=== PATIENT | female | born 1970 | race Caucasian/White ===

== ENCOUNTER 2017-02-12 16:20 | Emergency (ER) | payer MEDICAID, OTHER ==
[~2017-02-12] VITALS: Ht 167.6 cm; Wt 65.0 kg
[~2017-02-12 16:20] MED LIST: CEPH500C3 PO; SULF-154 PO; Z.0.NO CURRENT MEDS
[2017-02-12 16:23] VITALS: BP 186/90; PULSE 107; RESP 20; TEMP 98.8; O2SAT 96
--- NOTE | 2017-02-12 16:28 | PD ---
Physical Exam Date Seen by Provider: February 12, 2017 Time Seen by Provider: 16:25 Narrative 46 year old female presents to the emergency department for [id number] of back pain. She stated it started with lower back pain and radiated up. She states it started on Friday after she twisted her back. She went to [facility] on Friday and had a CT of her abdomen done. She was diagnosed with a muscle strain. Vital signs reviewed. Patient awaiting bed placement. Data Data Last Documented VS Vital Signs Date Time Temp Pulse Resp B/P Pulse Ox O2 Delivery O2 Flow Rate FiO2 02/12/17 16:23 98.8 107 20 186/90 96 MDM Supervised Visit with CHANCE: Terri Reyes February 12, 2017 16:28
[2017-02-12] MEDS ORDERED: KETOROLAC TROMETHAMINE 30 MG/ML (IVP) VIAL IV PUSH ONE (16:45)
[2017-02-12] MEDS ORDERED: MORPHINE SULFATE 4 MG/ML INJ IV ONE (16:45)
[2017-02-12] MEDS ORDERED: ONDANSETRON HCL 4 MG/2 ML VIAL IVP ONE (16:45)
--- NOTE | 2017-02-12 16:49 | PD ---
HPI Chief Complaint: Flank/Kidney Pain Time Seen by Provider: 16:35 Travel History International Travel<30 days: No Contact w/Intl Traveler<30days: No Traveled to known affect area: No History of Present Illness HPI 46-year-old female presents for evaluation of back pain. Reports that 5 days ago she was opening her fridge door when the door became unhinged and she ended up twisting her back in an effort to hold up the door. She developed some lower back pain then. Since then the pain has gradually worsened, now radiates into the left flank region of the back. The pain is an aching/spasm pain which is constant and worse with movement. She was seen at [facility] 2 days ago. She reports that she had a urinalysis which revealed some hematuria. They performed a CT of the abdomen and pelvis which revealed no evidence of stone or other abnormality. She was diagnosed with a thoracic strain and recommended [id number] ibuprofen use. She was encouraged to follow-up with primary care physician possibly for CT imaging with IV contrast. She made an appointment with a primary care physician next Friday but she comes here today with persistent pain and requesting pain control. She denies any new injury. She denies any dysuria, fevers or chills, abdominal pain, chest pain, shortness of breath, nausea or vomiting. She has no other complaints. PFSH Past Medical History Cancer: Yes (MELANOMA BACK) Diabetes: No Diminished Hearing: No Glaucoma: No Hepatitis: No Hiatal Hernia: No Hypertension: No Integumentary: Yes (MELANOMA REMOVED) Thyroid Disease: No : 3 Para: 3 Past Surgical History Abdominal Surgery: No Cardiac Surgery: No Ear Surgery: No Endocrine Surgery: No Eye Surgery: No Genitourinary Surgery: No Gynecologic Surgery: No Oral Surgery: No Pacemaker: No Thoracic Surgery: No Social History Alcohol Use: Yes (OCC) Tobacco Use: Yes (/2 PPD) Substance Use: No Allergies-Medications (Allergen,Severity, Reaction): Coded Allergies: No Known Allergies (Verified , 02/12/17) Reported Meds & Prescriptions Reported Meds & Active Scripts Active Lidoderm Patch 12 HR (Lidocaine) 5% Patch 1 Patch TOPICAL DAILY PRN Remove patch after 12 hours Baclofen 10 Mg Tab 10 Mg PO Q8HR PRN [address] (Diclofenac Sodium) 75 Mg Tabdr 75 Mg PO BID 10 Days Review of Systems Except as stated in HPI: all other systems reviewed are Neg Physical Exam Narrative GENERAL: Well-developed well-nourished female in no acute distress SKIN: Warm and dry. HEAD: Atraumatic. Normocephalic. EYES: Pupils equal and round. No scleral icterus. No injection or drainage. ENT: No nasal bleeding or discharge. Mucous membranes pink and moist. NECK: Trachea midline. No JVD. CARDIOVASCULAR: Regular rate and rhythm. No murmur appreciated. RESPIRATORY: No accessory muscle use. Clear to auscultation. Breath sounds equal bilaterally. GASTROINTESTINAL: Abdomen soft, non-tender, nondistended. Hepatic and splenic margins not palpable. MUSCULOSKELETAL: No obvious deformities. Tender to palpation left CVA region. No tenderness to palpation along the thoracic or lumbar midline. NEUROLOGICAL: Awake and alert. No obvious cranial nerve deficits. Motor grossly within normal limits. Normal speech. PSYCHIATRIC: Appropriate mood and affect; insight and judgment normal. Data Data Last Documented VS Vital Signs Date Time Temp Pulse Resp B/P Pulse Ox O2 Delivery O2 Flow Rate FiO2 02/12/17 18:22 70 20 124/75 97 Room Air 02/12/17 16:23 98.8 Orders Complete Blood Count With Diff (02/12/17 16:43) Basic Metabolic Panel (Bmp) (02/12/17 16:43) Urinalysis - C+S If Indicated (02/12/17 16:43) Ed Urine Pregnancytest Poc (02/12/17 16:43) Iv Access Insert/Monitor (02/12/17 16:43) Morphine Inj (Morphine Inj) (02/12/17 16:45) Ondansetron Inj (Zofran Inj) (02/12/17 16:45) Ketorolac Inj (Toradol Inj) (02/12/17 16:45) Sodium Chlor 0.9% 1000 Ml Inj (Ns 1000 M (02/12/17 17:25) Act Partial Throm Time (Ptt) (02/12/17 17:26) Prothrombin Time / Inr (Pt) (02/12/17 17:26) Labs Laboratory Tests Test 02/12/17 02/12/17 17:18 18:20 White Blood Count 7.9 TH/MM3 Red Blood Count 5.26 MIL/MM3 Hemoglobin 15.5 GM/DL Hematocrit 45.1 % Mean Corpuscular Volume 85.8 FL Mean Corpuscular Hemoglobin 29.4 PG Mean Corpuscular Hemoglobin 34.3 % Concent Red Cell Distribution Width 14.6 % Platelet Count 222 TH/MM3 Mean Platelet Volume 8.6 FL Neutrophils (%) (Auto) 74.1 % Lymphocytes (%) (Auto) 17.4 % Monocytes (%) (Auto) 7.3 % Eosinophils (%) (Auto) 0.7 % Basophils (%) (Auto) 0.5 % Neutrophils # (Auto) 5.9 TH/MM3 Lymphocytes # (Auto) 1.4 TH/MM3 Monocytes # (Auto) 0.6 TH/MM3 Eosinophils # (Auto) 0.1 TH/MM3 Basophils # (Auto) 0.0 TH/MM3 CBC Comment DIFF FINAL Differential Comment Prothrombin Time 10.2 SEC Prothromb Time International 0.9 RATIO Ratio Activated Partial 26.9 SEC Thromboplast Time Sodium Level 140 MEQ/L Potassium Level 4.0 MEQ/L Chloride Level 103 MEQ/L Carbon Dioxide Level 28.8 MEQ/L Anion Gap 8 MEQ/L Blood Urea Nitrogen 17 MG/DL Creatinine 0.76 MG/DL Estimat Glomerular Filtration 81 ML/MIN Rate Random Glucose 92 MG/DL Calcium Level 10.1 MG/DL Urine Color YELLOW Urine Turbidity HAZY Urine pH 6.0 Urine Specific [place] 1.018 Urine Protein NEG mg/dL Urine Glucose (UA) NEG mg/dL Urine Ketones NEG mg/dL Urine Occult Blood SMALL Urine Nitrite NEG Urine Bilirubin NEG Urine Urobilinogen LESS THAN 2.0 MG/DL Urine Leukocyte Esterase SMALL Urine RBC 8 /hpf Urine WBC 4 /hpf Urine Squamous Epithelial 3 /hpf Cells Urine Bacteria FEW /hpf Urine Hyaline Casts 1 /lpf Urine Mucus FEW /lpf Microscopic Urinalysis Comment CULT NOT INDICATED MDM Medical Decision Making Medical Screen Exam Complete: Yes Emergency Medical Condition: Yes Medical Record Reviewed: Yes Differential Diagnosis Thoracic strain, spasm, renal stone, hydronephrosis, pyelonephritis, shingles Narrative Course 46-year-old female who reports that she twisted her back 5 days ago when the refrigerator door became unhinged. She has had persistent left flank region pain since then which is worse with movement. Seen at an outside emergency room 2 days ago, diagnosed with a thoracic strain after CT of the abdomen and pelvis, persistent pain today which prompted evaluation. Her history is certainly suggestive of a muscle strain. We will attempt to get records she was concerned about the treatment that she received at the outside hospital. We will review the CT of the abdomen and pelvis records. The patient will be provided pain medicine. We will check her kidney function and repeat urinalysis because she does report hematuria at the outside emergency room. After my examination the patient mentioned to the nurse that she had bright red rectal bleeding during bowel movements about 2-3 times one month ago. None since then. No rectal pain or abdominal pain. Rectal examination was performed in the presence of a female nurse revealing brown stool, Hemoccult negative. Hemoglobin 15. Received the fax from [facility]. CT of the abdomen and pelvis was read as "normal CT abdomen and pelvis" by radiologist Dr. Maloney , urinalysis on February 10 revealed trace blood and trace proteins. The patient's lab work today is unremarkable. Her examination and history are consistent with a thoracic strain. Recommended outpatient follow-up. She will be discharged with nonnarcotic pain medication. HemaPrompt Point of Care Internal Pos. & Neg. Controls: Passed Fecal Specimen Occult Blood: Negative Diagnosis Primary Impression: Strain of thoracic region Qualified Code: S29.019A - Strain of thoracic region, initial encounter Additional Impression: Hematuria Additional Instructions: Medication as needed. Do not drive or drink alcohol when taking baclofen. Follow up close with primary care physician. Return for any emergent medical conditions. Med/Other Pt SpecificInfo: Prescription(s) given Scripts Lidocaine Patch 12 HR (Lidoderm Patch 12 HR)5% Patch1 Patch TOPICAL DAILY PRN ( PAIN) #1 BOX Ref 1 Remove patch after 12 hours Prov:Pili Anand MD 02/12/17 Baclofen 10 Mg Tab10 Mg PO Q8HR PRN (MUSCLE SPASM) 10 Days Ref 0 Prov:Pili Anand MD 02/12/[address] 75 Mg Tabdr75 Mg PO BID 10 Days Ref 0 Prov:Pili Anand MD 02/12/17 Disposition: 01 DISCHARGE HOME Condition: Stable Sunny Silva February 12, 2017 16:49
[2017-02-12] MEDS ORDERED: SODIUM CHLOR 0.9% 1000 ML INJ 1,000 ML IV SCH (17:25)
[2017-02-12 17:38] VITALS: BP 187/80; PULSE 76; RESP 24; O2SAT 96
[2017-02-12 17:47] LABS: AUTOMATED NEUTROPHIL # 5.9 TH/MM3 (1.8-7.7); BASOPHIL % 0.5 % (0.0-2.0); EOSINOPHIL # 0.1 TH/MM3 (0-0.4); EOSINOPHIL % 0.7 % (0.0-4.0); HEMATOCRIT 45.1 % (35.0-46.0); HEMO FLAGS DIFF FINAL; LYMPH % 17.4 % (9.0-44.0); LYMPHOCYTE # 1.4 TH/MM3 (1.0-4.8); MEAN CELL VOLUME 85.8 FL (80.0-100.0); MEAN CORPUSCULAR HEMOGLOBIN 29.4 PG (27.0-34.0); MEAN CORPUSCULAR HGB CONC 34.3 % (32.0-36.0); MONO % 7.3 % (0.0-8.0); NEUT % 74.1 % (16.0-70.0); PLATELET COUNT 222 TH/MM3 (150-450); RED BLOOD COUNT 5.26 MIL/MM3 (4.00-5.30); RED CELL DISTRIBUTION WIDTH 14.6 % (11.6-17.2); WHITE BLOOD COUNT 7.9 TH/MM3 (4.0-11.0)
[2017-02-12 18:06] LABS: APTT (PATIENT) 26.9 SEC (24.3-30.1); INTERNATIONAL NORMALIZED RATIO 0.9 RATIO; PROTHROMBIN TIME - PATIENT 10.2 SEC (9.8-11.6)
[2017-02-12 18:08] LABS: BICARBONATE 28.8 MEQ/L (21.0-32.0)
[2017-02-12 18:22] VITALS: BP 124/75; PULSE 70; RESP 20; O2SAT 97
[2017-02-12] MEDS ORDERED: DICL75TA PO (18:56)
[2017-02-12] MEDS ORDERED: BACL10TA PO (18:56)
[2017-02-12] MEDS ORDERED: LIDO5DIS35 TOPICAL (18:56)
[2017-02-12 19:11] LABS: BACTERIA, URINE FEW /hpf; BLOOD, URINE SMALL (NEG); COMMENT (UR) CULT NOT INDICATED; CULTURE IF INDICATED CULT NOT INDICATED; GLUCOSE,URINE NEG (NEG); HYALINE CAST, URINE 1 /lpf (RARE); KETONE, URINE NEG (NEG); MUCUS URINE FEW /lpf (OCC); NITRITE,URINE NEG (NEG); SQUAMOUS EPITHELIAL CELL URINE 3 /hpf (0-5); URINE COLOR YELLOW (YELLW/STRAW)
== END 2017-02-12 19:30 | disposition home or self-care (01) ==
LOC: NEPD 16:20
DX: S29.012A Strain of muscle and tendon of back wall of thorax, initial encounter (principal); R31.9 Hematuria, unspecified; X50.0XXA Overexertion from strenuous movement or load, initial encounter; Y93.89 Activity, other specified
CPT/HCPCS: 80048; 81001; 84703; 85025; 85610; 85730; 96361; 96374; 96375; 99283; J1885; J2270; J2405; J7030